=== PATIENT | female | born 1990 | race Caucasian/White ===

== ENCOUNTER 2018-03-20 01:59 | Emergency (ER) | payer OTHER ==
[~2018-03-20] VITALS: Ht 162.6 cm; Wt 81.6 kg
[2018-03-20] MEDS ORDERED: AMOXICILLIN400 MG PO (02:08)
[2018-03-20] MEDS ORDERED: DOLOGESIC 500-1 EACH PO (02:09)
[2018-03-20] MEDS ORDERED: MAXITROL EYE O3.5 GM OTIC ×2 (02:09→02:24)
[2018-03-20] MEDS ORDERED: ALLEGRA-D 12 H1 EACH PO ×2 (03:08→03:09)
[2018-03-20] MEDS ORDERED: NAPROXEN SODIU550 M1 PO ×2 (03:08→03:09)
== END 2018-03-20 03:15 | disposition home or self-care (01) ==
LOC: ER 01:59
DX: H66.92 Otitis media, unspecified, left ear (principal)

== ENCOUNTER → 2018-12-04 | Emergency (ER) | payer OTHER ==
[~2018-12-04] VITALS: Ht 162.6 cm; Wt 86.2 kg
[~2018-12-04] MED LIST: ALLEGRA-D 12 H1 EACH PO; AMOXICILLIN400 MG PO; DOLOGESIC 500-1 EACH PO; MAXITROL EYE O3.5 GM OTIC; NAPROXEN SODIU550 M1 PO
== END | disposition home or self-care (01) ==
LOC: ER 20:28
DX: M94.0 Chondrocostal junction syndrome [Tietze] (principal)